=== PATIENT | female | born 1955 | race African-American/Black ===

== ENCOUNTER → 2017-02-27 | Outpatient (CLI) | payer MEDICARE ==
[~2017-02-27] MED LIST: ALBU18HF2 IH; ATEN-36 PO; HYDR-4246 PO; RANI300T7 PO
[2017-02-27 15:04] LABS: BASOPHILS % (AUTO) 0.6 % (0-2); EOSINOPHILS # (AUTO) 0.2 T/MM3 (0-0.5); HCT - HEMATOCRIT 38.5 % (36-46); HGB - HEMOGLOBIN 12.5 GM/DL (12-16); IMMATURE GRANULOCYTE # (AUTO) 0.01 T/MM3 (0.00-0.03); IMMATURE GRANULOCYTE % (AUTO) 0.3 % (0.0-0.5); LYMPHOCYTES # (AUTO) 1.6 T/MM3 (1-4.8); LYMPHOCYTES % (AUTO) 45.1 % (23-45); MEAN CORPUSCULAR HGB 29.5 UUG (26-34); MEAN CORPUSCULAR HGB CONC(MCHC 32.5 GM/DL (31-37); MEAN CORPUSCULAR VOLUME 90.8 UM3 (80-100); MEAN PLATELET VOLUME 8.7 UM3 (9.4-12.4); MONOCYTES # (AUTO) 0.4 T/MM3 (0-0.8); MONOCYTES % (AUTO) 10.9 % (0-9.0); NEUTROPHILS #(AUTO)-ABSOLUTE 1.3 T/MM3 (1.8-7.7); NEUTROPHILS % (AUTO) 37.1 % (33-66); RED BLOOD COUNT 4.24 M/MM3 (4.00-5.20); WBC - WHITE BLOOD COUNT 3.5 T/MM3 (4.5-11.0)
[2017-02-27 15:11] LABS: ALBUMIN 4.4 G/DL (3.5-5.0); ALKALINE PHOSPHATASE 83 U/L (38-126); ALT (SGPT) 39 U/L (9-52); ANION GAP 12 MEQ/L (5-15); AST (SGOT) 37 U/L (14-36); BUN/CREATININE RATIO 20 RATIO (6-26); CALCIUM 9.5 MG/DL (8.4-10.2); CHLORIDE 104 MEQ/L (98-107); CO2 - CARBON DIOXIDE 30 MEQ/L (22-30); CREATININE 0.8 MG/DL (0.7-1.2); GLOMERULAR FILTRATION RATE 73; GLUCOSE 84 MG/DL (65-110); LDH 510 U/L (313-618); SODIUM 146 MEQ/L (134-144)
[2017-02-27 15:20] LABS: IGG - IMMUNOGLOBULIN G 1710.05 MG/DL (700-1600); IGM - IMMUNOGLOBULIN M 184.15 MG/DL (40-230)
== END ==
LOC: LAB 14:25
PROVIDERS: ATTEND Internal Medicine Hematology & Oncology
DX: D70.9 Neutropenia, unspecified (principal); D72.819 Decreased white blood cell count, unspecified; R80.9 Proteinuria, unspecified
CPT/HCPCS: 36415; 80053; 82784; 83615; 83883; 84155; 84165; 85025; 86038; 86334; 86431

== ENCOUNTER → 2017-03-18 | Outpatient (CLI) | payer MEDICARE ==
--- NOTE | 2017-03-18 14:20 | DI ---
INDICATION: ITS.REASON: R07.9 CHEST PAIN, UNSPECIFIED PROCEDURE: CHEST 2-VIEWS UPRIGHT (PA \T\ LAT) Encounter: Initial COMPARISON: July 14, 2015 FINDINGS: The lungs are stable without new focal abnormal airspace opacity. There is no pleural effusion or pneumothorax. Chronic mild elevation of left hemidiaphragm with left basilar scarring. The heart size, mediastinal contours and pulmonary vascularity are within normal limits. IMPRESSION: Stable chest without acute cardiopulmonary disease. .
== END ==
LOC: WC.BC 13:28
PROVIDERS: ATTEND Internal Medicine
DX: Z12.31 Encounter for screening mammogram for malignant neoplasm of breast (principal); R07.9 Chest pain, unspecified; Z80.3 Family history of malignant neoplasm of breast
CPT/HCPCS: 71020; 77063; G0202

== ENCOUNTER → 2017-03-25 | Outpatient (CLI) | payer MEDICARE ==
[2017-03-28 02:58] LABS: HEPATITIS B SURFACE AG - BATCH NEGATIVE (NEGATIVE)
[2017-03-28 03:04] LABS: HEPATITIS A ANTIBODY IGM-BATCH NEGATIVE (NEGATIVE)
[2017-03-28 03:16] LABS: HEPATITIS C VIRUS AB-BATCH NEGATIVE (NEGATIVE)
== END ==
LOC: LAB 14:00
PROVIDERS: ATTEND Internal Medicine Hematology & Oncology
DX: R74.0 Nonspecific elevation of levels of transaminase and lactic acid dehydrogenase [LDH] (principal); D47.9 Neoplasm of uncertain behavior of lymphoid, hematopoietic and related tissue, unspecified; D89.2 Hypergammaglobulinemia, unspecified
CPT/HCPCS: 36415; 80074; 82525; 83516; 84630; 86021; 86140; 86255

== ENCOUNTER → 2017-04-15 | Outpatient (CLI) | payer MEDICARE ==
--- NOTE | 2017-04-15 09:32 | DI ---
Indication: ITS.REASON: R10.9 UNSPECIFIED ABD PAIN PROCEDURE: US ABDOMINAL AORTA, NON-DUPLEX: Encounter: Initial Comparison: None Technique: Grayscale and color Doppler sonographic imaging of the abdominal aorta was performed. Findings/ Impression: No evidence of an abdominal aortic aneurysm. Maximal aortic diameter is 1.7 cm proximally. No significant plaque burden. .
== END ==
LOC: IMA 07:09
PROVIDERS: ATTEND Internal Medicine
DX: R10.9 Unspecified abdominal pain (principal)